=== PATIENT | male | born 1975 | race African-American/Black ===

== ENCOUNTER 2023-07-08 08:38 | Emergency (ER) | payer OTHER, SELFPAY ==
[2023-07-08] VITALS (42 sets, daily range): BP systolic 130–196; BP diastolic 97–129; PULSE 57–88; RESP 10–24; TEMP 36.8; O2SAT 96–100; BMI 28.2
--- NOTE | 2023-07-08 09:01 | ECG_ITS ---
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
--- NOTE | 2023-07-08 09:04 | ED.GENADUL1 ---
HPI - General Adult General Chief complaint: Chest Pain Stated complaint: chest pain Time Seen by Provider: 07/08/23 08:50 Source: patient Mode of arrival: walk-in History of Present Illness HPI narrative: Patient is a 47-year-old male who is presenting to the Emergency Room today with chief complaint of several months of chest pain, worsening with exxertion. Patient used to smoke half a pack-a-day for 30-40 years, patient quit smoking cold turkey in January because he was walking, no short of breath and having chest pain, so patient quit smoking that day. Patient has been told multiple times in the past his high blood pressure. He's never seen a doctor ever had a prescription for high blood pressure. Patient's mother at 29 of multiple sclerosis and she had several strokes. No other first-degree relative a cardiac history. Patient smokes marijuana daily, no cocaine. Patient quit smoking in January. Patient takes no medications is not seen a doctor in over 30 years. Patient is active, works in a factory. Patient states that he's been walking for the last couple months and worsening in the last couple weeks he will get chest pain, tightness and there are to sit down and eventually chest pain and tightness will go away. Patient says he is fairly active with walking and doing cardiovascular exercise, but the last few months he isn't having much more difficulty doing this. . All systems are negative except as noted/marked. All systems reviewed and otherwise negative. . Nurses note and vital signs reviewed and patient is not hypoxic. General: The patient appears well and in no apparent distress. Patient is resting comfortably on cart. Patient is not toxic, lethargic, or listless Skin: Warm, dry, no pallor noted. There is no rash noted. No petechiae, purpura. Head: Normocephalic, atraumatic Eye: Normal conjunctiva, no drainage, EOMI. PERRL Ears, Nose, Mouth, and Throat: oral mucosa is moist. Nares patent. Mouth without vesicles. Cardiovascular: Regular Rate and Rhythm, no murmur, gallop, rub. No reproducible tenderness to palpation to anterior, lateral, posterior chest wall Respiratory: Patient is in no distress, no accessory muscle use, lungs are clear to auscultation, no wheezing, rales or rhonchi Back: non-tender, no CVA tenderness bilaterally to percussion. No CT LS midline pain GI: soft, no tenderness to palpation, no masses appreciated. No rebound, guarding, or rigidity noted. No flank pain bilateral, No distention Musculoskeletal: Patient has full range of motion of all of the extremities, no motor, sensory, or focal neurological deficits Neurological: A&O x3, normal speech Psychiatric: Cooperative Related Data Home Medications Medication Instructions Recorded Confirmed No Known Home Medications 07/08/23 07/08/23 Allergies Allergy/AdvReac Type Severity Reaction Status Date / Time No Known Drug Allergies Allergy Verified 07/08/23 08:42 PFSH PFS Social History Smoking status: Former smoker Exam Constitutional Vital Signs, click to edit/add: Last Vital Signs Temp 98.2 F 07/08/23 08:42 Pulse 62 07/08/23 12:31 Resp 12 07/08/23 12:31 BP 152/106 H 07/08/23 12:31 Pulse Ox 99 07/08/23 12:31 O2 Del Method Room Air 07/08/23 08:42 Course Vital Signs Vital signs: Vital Signs Temperature 98.2 F 07/08/23 08:42 Pulse Rate 79 07/08/23 08:42 Respiratory Rate 18 07/08/23 08:42 Blood Pressure 196/120 H 07/08/23 08:42 Pulse Oximetry 99 07/08/23 08:42 Oxygen Delivery Method Room Air 07/08/23 08:42 Temperature 98.2 F 07/08/23 08:42 Pulse Rate 62 07/08/23 12:31 Respiratory Rate 12 07/08/23 12:31 Blood Pressure 152/106 H 07/08/23 12:31 Pulse Oximetry 99 07/08/23 12:31 Oxygen Delivery Method Room Air 07/08/23 08:42 Medical Decision Making MDM Narrative Medical decision making narrative: 0900 Patient EKG shows initially multiple changes, no evidence of a STEMI. EKG will be repeated. Patient was given aspirin. Patient has equal bilateral manual blood pressures of 170s/100s. Patient will be given 1 nitroglycerin, this is an work up be given IV beta ta. Patient has never seen a doctor in [facility] over 20-30 years. Patient will be admitted and recommended to be admitted for chest pain to rule out acute coronary syndrome and will need additional cardiac testing. [address] Simpson, he was able to view the 2 EKGs along with patient's story and elevated hypertension with no primary care physician. Patient is almost feeling his own stress test daily when he is walking or exercising. Patient will start walking, striking chest pain and tightness, then we'll have to sit down and the pain and tightness were relieved. Patient has a history of tobacco abuse, quit smoking in January. Patient was half a pack-a-day for 30+ years. Patient has never seen a PCP. Patient's been told for many years he has hypertension. Dr. Simpson recommended patient coming over to [facility], being admitted to the hospitals, and patient will have a cardiac catheter later today or tomorrow. This information has been given to the patient and he has been updated. Patient agrees with admission and transfer, extremity thankful for help today. Dr. Simpson is aware of Nitrol, aspirin, Lopressor, and does not recommend any intervention at this time. 1145 As spoken to the hospitalist at [facility], Dr. Booth. He agrees with admission, recommends a 2nd troponin and will admit the patient with Dr. Simpson in consultation. 1300 Patient's 2nd troponin is negative. Patient is being transferred to medical admission with cardiology in consultation. Patient has not had a return of significant pain otherwise been in the Emergency Room. Patient's blood pressure has remained high, no other recommendations to treat blood pressure recommended by Dr. Simpson. Critical care time 35 minutes exclusive from separate billable procedures that were performed. The following was considered in the determination of critical care but not limited to the level of medical decision making, intensive cardiac and/or respiratory monitoring, frequent vital sign monitoring, evaluation of laboratory studies, evaluation of radiographic studies, oxygen monitoring, and constant monitoring and speaking to family at bedside Lab Data Labs: Lab Results 07/08/23 07/08/23 Range/Units 09:20 12:16 WBC 4.8 (4.0-11.0) 10^3/uL RBC 4.61 L (4.70-6.10) 10^6/uL Hgb 14.8 (14.0-18.0) g/dL Hct 45.3 (42.0-54.0) % MCV 98.3 H (80.0-94.0) fL MCH 32.1 (25.9-34.0) pg MCHC 32.7 (29.9-35.2) g/dL RDW 14.0 (11.0-15.0) % Plt Count 210 (150-450) 10^3/uL MPV 9.9 (9.5-13.5) fL Neut % (Auto) 45.6 (43.0-75.0) % Lymph % (Auto) 37.6 (20.5-60.0) % [place] % (Auto) 13.9 H (1.7-12.0) % Eos % (Auto) 2.1 (0.9-7.0) % Baso % (Auto) 0.4 (0.2-2.0) % Neut # (Auto) 2.2 (1.4-6.5) 10^3/uL Lymph # (Auto) 1.8 (1.2-3.8) 10^3/uL [place] # (Auto) 0.7 (0.3-0.8) 10^3/uL Eos # (Auto) 0.1 (0.0-0.7) 10^3/uL Baso # (Auto) 0.0 (0.0-0.1) 10^3/uL Abs Immat Gran (auto) 0.02 (0.00-0.03) 10^3/uL Imm/Tot Granulo (auto) 0.4 (0.0-0.5) % PT 10.6 (9.0-11.6) sec INR 1.00 APTT 31.0 (22.3-36.2) sec Sodium 138 (136-145) mmol/L Potassium 3.6 (3.5-5.1) mmol/L Chloride 102 (98-107) mmol/L Carbon Dioxide 24.6 (21.0-32.0) mmol/L Anion Gap 15.0 BUN 12.0 (7.0-18.0) mg/dL Creatinine 1.19 (0.70-1.30) mg/dL Est GFR ( Amer) >60 (>=60) Est GFR (Non-Af Amer) >60 (>=60) BUN/Creatinine Ratio 10.1 Glucose 96 (74-106) mg/dL Calcium 9.9 (8.5-10.1) mg/dL Total Bilirubin 1.6 H (0.2-1.0) mg/dL AST 61 H (15-37) U/L ALT 95 H (16-63) U/L Alkaline Phosphatase 69 (46-116) U/L Troponin I High Sens 17.5 17.4 (4.0-76.1) pg/mL NT-Pro-B Natriuret Pep 1076.0 H (<=900.0) pg/mL Total Protein 8.0 (6.4-8.2) g/dL Albumin 3.9 (3.4-5.0) g/dL Globulin 4.1 g/dL Albumin/Globulin Ratio 1.0 Lipase 24.0 (16.0-77.0) U/L ECG Data Attestation: I personally reviewed and interpreted this ECG as follows: (EKG interpretation. Normal sinus rhythm at 74 beats a minute. Normal axis deviation. Patient has T-wave inversion in lead 3, aVF. Patient has diffuse T-wave inversion through the anterior lateral leads as well. Left ventricular hypertrophy noted. Questionable ST elevation in leads V2, the V1. ) Interpretation: We have no old EKG to compare to, diffuse ST changes, EKG will be repeated. EKG #2. Normal sinus rhythm at 70 beats a minute. Normal axis deviation. Diffuse ST changes, T-wave inversion in lead 3, aVF, anterolateral leads. QTC of 433. No acute changes from 1st EKG Discharge Plan Discharge Chief Complaint: Chest Pain Clinical Impression: Medical non-compliance, Angina pectoris, unstable, Chest pain, Hypertension Patient Disposition: [facility] Time of Disposition Decision: 10:50 Discharge location: [facility], medical admission with Dr. Simpson cardiology in consul Condition: Serious Mode of Transportation: EMS
[2023-07-08] MEDS: ASPIRIN 81 MG TAB.CHEW 162 MG PO (09:08)
[2023-07-08] MEDS: ONDANSETRON PF 4 MG/2 ML VIAL IV (09:08)
[2023-07-08] MEDS: NITROGLYCERIN 0.4 MG BOTTLE PO (09:08)
--- NOTE | 2023-07-08 09:09 | ECG_ITS ---
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
[2023-07-08 09:39] LABS: Basophils Percent Auto 0.4 % (0.2-2.0); Eosinophils Absolute Auto 0.1 10^3/uL (0.0-0.7); Eosinophils Percent Auto 2.1 % (0.9-7.0); Hematocrit 45.3 % (42.0-54.0); Hemoglobin 14.8 g/dL (14.0-18.0); Immature Granulocytes Abs Auto 0.02 10^3/uL (0.00-0.03); Immature Granulocytes Pct Auto 0.4 % (0.0-0.5); Lymphocytes Absolute Auto 1.8 10^3/uL (1.2-3.8); Lymphocytes Percent Auto 37.6 % (20.5-60.0); Mean Corpuscular HGB Conc 32.7 g/dL (29.9-35.2); Mean Corpuscular Hemoglobin 32.1 pg (25.9-34.0); Mean Corpuscular Volume 98.3 fL (80.0-94.0); Mean Platelet Volume 9.9 fL (9.5-13.5); Monocytes Absolute Auto 0.7 10^3/uL (0.3-0.8); Monocytes Percent Auto 13.9 % (1.7-12.0); Neutrophils Absolute Auto 2.2 10^3/uL (1.4-6.5); Neutrophils Percent Auto 45.6 % (43.0-75.0); Platelet Count 210 10^3/uL (150-450); Red Blood Count 4.61 10^6/uL (4.70-6.10); White Blood Count 4.8 10^3/uL (4.0-11.0)
[2023-07-08 09:52] LABS: Prothrombin Time 10.6 sec (9.0-11.6)
[2023-07-08] MEDS: METOPROLOL TARTRATE 5 MG/5 ML VIAL IVP (10:01)
[2023-07-08 10:07] LABS: Alanine Aminotransferase 95 U/L (16-63); Albumin Level 3.9 g/dL (3.4-5.0); Alkaline Phosphatase 69 U/L (46-116); Aspartate Amino Transferase 61 U/L (15-37); BUN Creatinine Ratio 10.1; Bilirubin Total 1.6 mg/dL (0.2-1.0); Calcium 9.9 mg/dL (8.5-10.1); Carbon Dioxide 24.6 mmol/L (21.0-32.0); Chloride 102 mmol/L (98-107); Estimated GFR (African America >60 (>=60); Estimated GFR (Non-African Ame >60 (>=60); Globulin 4.1 g/dL; Glucose 96 mg/dL (74-106); Potassium 3.6 mmol/L (3.5-5.1); Sodium 138 mmol/L (136-145); Troponin I High Sensitivity 17.5 pg/mL (4.0-76.1)
[2023-07-08 12:37] LABS: Troponin I High Sensitivity 17.4 pg/mL (4.0-76.1)
== END 2023-07-08 13:42 | disposition short-term general hospital (02) ==
PROVIDERS: Emergency Provider Emergency Medicine
DX: R07.9 Chest pain, unspecified (principal); I20.0 Unstable angina; I10 Essential (primary) hypertension; Z91.199 Patient's noncompliance with other medical treatment and regimen due to unspecified reason; Z87.891 Personal history of nicotine dependence; F12.90 Cannabis use, unspecified, uncomplicated
CPT/HCPCS: 36415; 71275; 80053; 80307; 83690; 83880; 84484; 85025; 85610; 85730; 93005; 96374; 96375; 99285; Q9967